=== PATIENT | female | born 1970 ===

== ENCOUNTER 2017-02-25 20:36 | Emergency (ER) | payer BC, OTHER ==
[2017-02-25 20:49] VITALS: BP 136/80
[2017-02-25] MEDS ORDERED: Ibuprofen TAB* 400 MG PO ONE (21:03)
--- NOTE | 2017-02-25 21:30 | UC ---
Skin Complaint HPI - HPI Summary HPI Summary: Pt presents with c/o of sunburn to bilateral lower extremities. Pt was on vacation over the weekend and admits to applying sunscreen twice during an 8 hour period being exposed to direct sun. - History of Current Complaint Chief Complaint: [facility] Time Seen by Provider: 02/25/17 20:41 Stated Complaint: SUNBURN, LEG PAIN/SWELLING Hx Obtained From: Patient Hx Last Menstrual Period: 01/30/17 ?: No Onset/Duration: Gradual Onset, Lasting Hours Skin Exposure Onset/Duration: Days Ago - yesterday. Timing: Constant Onset Severity: Mild Current Severity: Moderate Location: Discrete - bilateral lower extremities, anterior Character: Swelling, Redness, Painful Aggravating: Touch Alleviating: Cold Compresses Associated Signs & Symptoms: Positive: Tenderness Related History: Other: - sunburn - Allergy/Home Medications Allergies/Adverse Reactions: Allergies Allergy/AdvReac Type Severity Reaction Status Date / Time seasonal Allergy Eyes Uncoded 02/25/17 20:49 Itchy/Swollen/Red/Watery Home Medications: Home Medications 2nd Anti H T N Med 1 dose PO QPM 02/25/17 [History Confirmed 02/25/17] Anti-H T N 1 dose PO QAM 02/25/17 [History Confirmed 02/25/17] Fenofibrate 40 mg PO QPM 02/25/17 [History Confirmed 02/25/17] Levothyroxine TAB* [Synthroid 125 MCG TAB*] 225 mcg PO DAILY 02/25/17 [History Confirmed 02/25/17] Lovastatin [Altoprev] 30 mg PO QPM 02/25/17 [History Confirmed 02/25/17] Norgestimate-Eth Estradiol(NF) [Ortho Tri-Cyclen (NF)] 1 tab PO DAILY 02/25/17 [ History Confirmed 02/25/17] Review of Systems Constitutional: Negative Skin: Other - erythema, sunburn Eyes: Negative ENT: Negative Respiratory: Negative Cardiovascular: Negative Gastrointestinal: Negative Genitourinary: Negative Motor: Negative Neurovascular: Negative Musculoskeletal: Myalgia Neurological: Negative Psychological: Negative All Other Systems Reviewed And Are Negative: Yes PMH/Surg Hx/FS Hx/Imm Hx Previously Healthy: Yes - Surgical History Surgical History: Yes Surgery Procedure, Year, and Place: wisdom teeth - Family History Known Family History: Positive: Cardiac Disease - Social History Occupation: Employed Full-time Lives: With Family Alcohol Use: Occasionally Substance Use Type: None Smoking Status (MU): Former Smoker Physical Exam Triage Information Reviewed: Yes Appearance: Well-Appearing Vital Signs: Initial Vital Signs Temp 98 F 02/25/17 20:45 Pulse 108 02/25/17 20:45 Resp 24 02/25/17 20:45 BP 136/80 02/25/17 20:45 Vital Signs Reviewed: Yes Neck exam: Normal Respiratory: Positive: No respiratory distress Musculoskeletal Exam: Normal Psychological Exam: Normal Skin Exam: Other - first degree chavez to bialteral anterior upper thighs, knees and upper shins. mild edema, non pitting, no blister formation superficial burn Course/Dx - Differential Diagnoses - Skin Complaint Differential Diagnoses: Other - first degree sunburn bilateral lower anterior extremities. - Diagnoses Provider Diagnoses: first degree sunburn bilateral lower anterior extremities. Discharge - Discharge Plan Condition: Stable Disposition: HOME Prescriptions: Ibuprofen TAB* [Motrin TAB* 800 MG] 800 mg PO Q8H PRN #15 tab PRN Reason: Pain Patient Education Materials: Sunburn (ED), Cold Compress or Soak (ED) Forms: *Work Release Referrals: [facility] [Outside]
== END 2017-02-25 21:25 | disposition home or self-care (01) ==
LOC: UCCORT 20:36
DX: L55.0 Sunburn of first degree (principal)
CPT/HCPCS: 99202; A9270-GY; G0463